=== PATIENT | female | born 1955 | race American Indian/Alaskan Native ===

== ENCOUNTER 2019-04-17 10:25 | Outpatient (CLI) | payer MEDICARE ==
--- NOTE | 2019-04-17 14:16 | Ultrasound Report ---
ULTRASOUND RENAL INDICATION / CLINICAL INFORMATION: Chronic kidney disease N18.9. COMPARISON: None available. FINDINGS: RIGHT KIDNEY: Length = 9.1 cm. [normal > 9 cm] - Parenchymal Thickness = 1.6 cm. [normal > 1.5 cm] - Echogenicity: Increased - Hydronephrosis: None. - Cyst or mass: No significant abnormality. - Stones: None seen. LEFT KIDNEY: Length = 9.2 cm. [normal > 9 cm] - Parenchymal Thickness = 1.4 cm. [normal > 1.5 cm] - Echogenicity: Increased - Hydronephrosis: None. - Cyst or mass: A 1.6 x 1.5 cm simple cyst is noted near the inferior pole of the left kidney. - Stones: None seen. URINARY BLADDER: Partially empty but unremarkable. FREE FLUID: None. ADDITIONAL FINDINGS: None. IMPRESSION: Slightly echogenic kidneys consistent with nonspecific renal parenchymal disease. Simple left renal cyst. No obstructive uropathy. Signer Name: Bhaskar Calderon Jr, MD Signed: 04/17/2019 2:11 PM Workstation Name: [id number]
== END 2019-04-17 10:26 | disposition home or self-care (01) ==
LOC: US 10:25
PROVIDERS: ATTEND Internal Medicine Hematology & Oncology
DX: N28.1 Cyst of kidney, acquired (principal); N18.9 Chronic kidney disease, unspecified
CPT/HCPCS: 76770